=== PATIENT | male | born 1975 | race Caucasian/White ===

== ENCOUNTER 2024-02-12 16:08 | Inpatient (IN) | payer OTHER ==
[2024-02-12] MEDS ORDERED: FAMOTIDINE 20 MG/2 ML VIAL IV ONE (16:48)
[2024-02-12] MEDS ORDERED: ONDANSETRON 4 MG/2 ML VIAL ONE ×2 (16:48→18:12)
[2024-02-12] MEDS ORDERED: HYDROMORPHONE HCL 1 MG/ML INJ ONE ×2 (16:48→18:13)
[2024-02-12] MEDS ORDERED: NA CHLORIDE 0.9% 1,000 ML ONE (16:48)
[2024-02-12 16:55] LABS: Specific Gravity > 1.030 (1.005-1.030); Sqamous Epithelial None Seen /HPF (None Seen); Urine Bacteria None Seen /HPF (<20); Urine Bilirubin NEGATIVE (Negative); Urine Blood Negative (Negative); Urine Clarity Clear (Clear); Urine Color Yellow (Yellow); Urine Culture Reflex Order NOT NEEDED; Urine Glucose NEGATIVE (Negative); Urine Ketones TRACE (Negative); Urine Microscopic Reflex YN ORDER UMIC; Urine Mucus 2+ /HPF (None Seen); Urine Nitrite NEGATIVE (Negative); Urine Protein 1+ (Negative); Urine RBC <5 /HPF (None Seen); Urine Urobilinogen Normal (Normal); Urine WBC <5 /HPF (<5)
[2024-02-12 17:12] LABS: Absolute Lymphocytes (CBC) 0.7 K/uL (0.7-4.9); Absolute Monocytes 0.5 K/uL (0.1-1.3); Absolute Neutrophil 10.4 K/uL (1.8-8.0); Basophils % 0.3 % (0-1.3); Hemoglobin 13.9 g/dL (13.6-17.9); Lymphocytes % 5.7 % (15.3-44.8); MCH 33.9 pg (27.0-35.0); MCHC 33.9 g/dL (32.0-36.0); MCV 100.1 fL (80-100); Monocytes % 4.6 % (3.3-12.3); Neutrophils % 89.4 % (41.7-73.7); Platelets 189 thou/uL (152-406); Red Cell Distribution Width 16.4 % (12.1-15.2)
[2024-02-12 17:41] LABS: Albumin 3.4 g/dL (3.4-5.0); Albumin/Globulin Ratio 1.1 (1.1-1.8); Anion Gap 9.8 mEq/L (5.0-15.0); Bilirubin Total 0.6 mg/dL (0.2-1.0); Globulin 3.1 g/dL (2.3-3.5); Potassium 3.8 mEq/L (3.5-5.1); Protein, Total 6.5 g/dL (6.4-8.2)
--- NOTE | 2024-02-12 19:00 | RAD REPORT ---
EXAMINATION: CT ABDOMEN AND PELVIS WITH CONTRAST CLINICAL INDICATION: Male, 49 years old.ABD PAIN TECHNIQUE: CT abdomen and pelvis was performed, after the administration of IV contrast, [facility]. Axial, sagittal and coronal reconstructions were obtained. One or more of the following dose reduction techniques were used: Automated exposure control, adjustment of the mA and/o r kV according to patient size, and/or iterative reconstruction. Unless otherwise specified, incidental findings do not require dedicated imaging follow-up. [id number]. COMPARISON: No prior exam. FINDINGS: LOWER CHEST: The visualized lung bases are clear. LIVER: Normal in size and contour. No focal lesion. GALLBLADDER/BILE DUCT: No biliary ductal dilatation.?Distended gallbladder. No radiopaque stones. PANCREAS: Mild peripancreatic fluid and edema. Mild pancreatic atrophy. SPLEEN: Normal size. No focal lesion. ADRENALS: Normal; no mass. KIDNEYS AND URETERS: Normal size and contour. No hydronephrosis. URINARY BLADDER: Normal contour. GASTROINTESTINAL TRACT: Stomach is non-dilated. Small bowel has normal course and caliber. No colonic wall thickening or pericolonic inflammatory changes. PERITONEUM: No ascites. LYMPH NODES: No lymphadenopathy. ABDOMINAL AORTA AND OTHER VESSELS: Normal caliber aorta and IVC. REPRODUCTIVE ORGANS: No pathologic process MUSCULOSKELETAL: No acute or suspicious osseous abnormality. Multilevel degenerative changes are pres ent in the spine. ADDITIONAL FINDINGS: None. IMPRESSION: Acute interstitial pancreatitis. No competition features identified.
--- NOTE | 2024-02-12 19:09 | ER ---
Nurse's Notes [facility] Name: Mario Alcantar Age: 49 yrs Sex: Male : 1975 Arrival Date: 02/12/2024 Time: 16:08 Bed 17 Private MD: Diagnosis: Other acute pancreatitis without necrosis or infection Presentation: 02/11 16:12 Chief complaint: EMS states: Toned out for diffuse abdominal pain, N/V since this jl7 morning. Coronavirus screen: At this time, the client does not indicate any symptoms associated with coronavirus-19. Ebola Screen: No symptoms or risks identified at this time. Initial Sepsis Screen: Does the patient meet any 2 criteria? No. Patient's initial sepsis screen is negative. Does the patient have a suspected source of infection? No. Patient's initial sepsis screen is negative. Risk Assessment: Do you want to hurt yourself or someone else? Patient reports no desire to harm self or others. Onset of symptoms was February 12, 2024. Care prior to arrival: Medication(s) given: 200 mcg fentanyl IVP IV initiated. 20 GA, in the right forearm. 16:12 Method Of Arrival: EMS: [facility] jl7 16:12 Acuity: NORMA 3 jl7 Triage Assessment: 16:15 General: Appears in no apparent distress. uncomfortable, Behavior is cooperative, jl7 appropriate for age, restless. Pain: Complains of pain in abdomen diffusely Pain currently is 5 out of 10 on a pain scale. at worst was 10 out of 10 on a pain scale. GI: Reports nausea, vomiting. Historical: - Allergies: 16:15 No Known Allergies; jl7 - Home Meds: 16:15 None [Active]; jl7 - PMHx: 16:15 None; jl7 - PSHx: 16:15 None; jl7 - Immunization history:: Adult Immunizations up to date. - Infectious Disease History:: Denies. - Social history:: Smoking status: Reported history of juuling and/or vaping. Screenin:09 [facility] ED Fall Risk Assessment (Adult) History of falling in the last 3 months, db including since admission No falls in past 3 months (0 pts) Confusion or Disorientation No (0 pts) Intoxicated or Sedated No (0 pts) Impaired Gait No (0 pts) Mobility Assist Device Used No (0 pt) Altered Elimination No (0 pt) Score/Fall Risk Level 0 - 2 = Low Risk Oriented to surroundings, Maintained a safe environment. Abuse screen: Denies threats or abuse. Denies injuries from another. Nutritional screening: No deficits noted. Tuberculosis screening: No symptoms or risk factors identified. Assessment: 16:30 Reassessment: Patient appears in no apparent distress at this time. Patient and/or db family updated on plan of care and expected duration. Pain level reassessed. Patient is alert, oriented x 3, equal unlabored respirations, skin warm/dry/pink. General: Appears in no apparent distress. uncomfortable, Behavior is calm, cooperative. Pain: Complains of pain in abdomen. Neuro: Level of Consciousness is awake, alert, obeys commands, Oriented to person, place, time, situation. Cardiovascular: No deficits noted. Denies chest pain. Respiratory: Airway is patent Respiratory effort is even, unlabored, Respiratory pattern is regular, symmetrical. 17:30 Reassessment: Patient appears in no apparent distress at this time. Patient and/or db family updated on plan of care and expected duration. Pain level reassessed. Patient is alert, oriented x 3, equal unlabored respirations, skin warm/dry/pink. Patient states symptoms have improved. 18:12 Reassessment: SEE MAR FOR MEDICATION ADMINISTRATION. Pain: Pain currently is 10 out of db 10 on a pain scale. 19:02 Reassessment: Patient appears in no apparent distress at this time. Patient and/or db family updated on plan of care and expected duration. Pain level reassessed. Patient is alert, oriented x 3, equal unlabored respirations, skin warm/dry/pink. Patient states feeling better. 20:00 Reassessment: Patient appears in no apparent distress at this time. Patient and/or cp4 family updated on plan of care and expected duration. Pain level reassessed. Patient is alert, oriented x 3, equal unlabored respirations, skin warm/dry/pink. Vital Signs: 16:12 BP 170 / 95; Pulse 60; Resp 17; Temp 97.7; Pulse Ox 100% ; Weight 81.65 kg; Height 5 jl7 ft. 10 in. ; Pain 5/10; 16:30 BP 161 / 87; Pulse 61; Resp 18; Pulse Ox 95% on R/A; db 17:44 BP 164 / 84; Pulse 75; Resp 18; Pulse Ox 94% on R/A; db 19:00 BP 166 / 83; Pulse 72; Resp 18; Pulse Ox 93% ; cp4 20:00 BP 167 / 77; Pulse 62; Resp 18; Pulse Ox 95% ; cp4 21:00 BP 164 / 73; Pulse 68; Resp 18; Pulse Ox 94% ; cp4 16:12 Body Mass Index 25.83 (81.65 kg, 177.8 cm) jl7 16:12 Pain Scale: Adult [facility] ED Course: 16:11 Patient arrived in ED. eb 16:14 Triage completed. jl7 16:15 Fortino Kaye PA is PHCP. cp 16:15 Brandon Gonzales MD is Attending Physician. cp 16:15 Arm band placed on right wrist. jl7 16:40 Ruthy Whyte, RN is Primary Nurse. db 16:50 Maintain EMS IV. Dressing intact. Good blood return noted. Site clean \T\ dry. Gauge \T\ db site: 20 g RFA. 18:[address] via stretcher. db 18:09 Patient has correct armband on for positive identification. Bed in low position. Call db light in reach. Side rails up X 1. Pulse ox on. NIBP on. Warm blanket given. Pillow given. 18:34 CT Abd/Pelvis - IV Contrast Only In Process Unspecified. EDMS 18:43 PHCP role handed off by Fortino Kaye PA kb 18:43 Maren John FNP-C is PHCP. kb 19:25 Primary Nurse role handed off by Ruthy Whyte, AMOS jl7 20:00 Brandon Gonzales MD is Hospitalizing Provider. kmf 20:01 Facundo Kline MD is Hospitalizing Provider. kmf Administered Medications: 16:55 Drug: NS 0.9% IV 1000 ml IV at 1 bolus Per protocol; 1000 mL bolus Route: IV; Rate: 1 db bolus; Site: right forearm; 18:02 Follow up: Response: No adverse reaction; IV Status: Completed infusion; IV Intake: db 1000ml 16:55 Drug: Famotidine IVP 20 mg IVP once; dilute with 10 mL 0.9% NaCl; give over 2 minutes db Route: IVP; Site: right forearm; 16:55 Drug: Ondansetron IVP 4 mg IVP once; over 2 minutes Route: IVP; Site: right forearm; db 16:55 Drug: HYDROmorphone IVP 1 mg IVP once Route: IVP; Site: right forearm; db 18:15 Drug: Ondansetron IVP 4 mg IVP once; over 2 minutes Route: IVP; Site: right forearm; db 19:00 Follow up: Response: No adverse reaction; Nausea is decreased cp4 18:15 Drug: HYDROmorphone IVP 1 mg IVP once Route: IVP; Site: right forearm; db 19:00 Follow up: Response: No adverse reaction; Pain is decreased cp4 Intake: 18:02 IV: 1000ml; Total: 1000ml. db Outcome: 19:08 Decision to Hospitalize by Provider. kb 21:27 Patient left the ED. cp4 Signatures: Dispatcher [employer] EDMS Maren John, HEENA MS ACCESS DATABASE DEVELOPER-Fortino Munoz PA PA cp Leal, Jahala RN RN jl7 Barbara Webb Danielle, RN RN Caryl Johns cp4 Lisa Marshall
--- NOTE | 2024-02-12 19:09 | EDPHYS ---
Physician Documentation [facility] Name: Mario Alcantar Age: 49 yrs Sex: Male : 1975 Arrival Date: 02/12/2024 Time: 16:08 Bed 17 Private MD: ED Physician Brandon Gonzales HPI: 02/11 16:35 This 49 yrs old Male presents to ER via EMS with complaints of Abdominal Pain. cp 16:35 The patient presents with abdominal pain that is diffuse. Onset: The symptoms/episode cp began/occurred this morning. Associated signs and symptoms: Pertinent positives: nausea and vomiting. Historical: - Allergies: 16:15 No Known Allergies; jl7 - Home Meds: 16:15 None [Active]; jl7 - PMHx: 16:15 None; jl7 - PSHx: 16:15 None; jl7 - Immunization history:: Adult Immunizations up to date. - Infectious Disease History:: Denies. - Social history:: Smoking status: Reported history of juuling and/or vaping. ROS: 16:40 Constitutional: Negative for body aches, chills, fever, cp 16:40 Eyes: Negative for injury, pain, redness, and discharge, cp 16:40 ENT: Negative for drainage from ear(s), ear pain, sore throat, difficulty swallowing, difficulty handling secretions, 16:40 Cardiovascular: Negative for chest pain, edema, palpitations, 16:40 Respiratory: Negative for cough, shortness of breath, wheezing, 16:40 Abdomen/GI: Positive for abdominal pain, nausea and vomiting, Negative for diarrhea, constipation, anorexia, 16:40 Neuro: Negative for altered mental status, dizziness, headache, 16:40 All other systems are negative, Exam: 16:45 Constitutional: The patient appears in no acute distress, alert, awake, cp non-diaphoretic, non-toxic, well developed, well nourished, in obvious pain, uncomfortable, 16:45 Head/Face: Normocephalic, atraumatic. cp 16:45 Eyes: Periorbital structures: appear normal, Conjunctiva: normal, no exudate, no injection, Sclera: no appreciated abnormality, Lids and lashes: appear normal, bilaterally, 16:45 ENT: External ear(s): are unremarkable, Nose: is normal, Mouth: Lips: moist, Oral mucosa: moist, 16:45 Chest/axilla: Inspection: normal, 16:45 Cardiovascular: Rate: normal, Rhythm: regular, 16:45 Respiratory: the patient does not display signs of respiratory distress, Respirations: normal, no use of accessory muscles, no retractions, labored breathing, is not present, Breath sounds: are clear throughout, no decreased breath sounds, no stridor, no wheezing, 16:45 Abdomen/GI: Inspection: abdomen appears normal, Bowel sounds: active, all quadrants, Palpation: soft, in all quadrants, severe abdominal tenderness, in the epigastric area, rebound tenderness, is not appreciated, 16:45 Back: CVA tenderness, is absent, 16:45 Neuro: Orientation: to person, place \T\ time. Mentation: is normal, Motor: moves all fours, strength is normal, Vital Signs: 16:12 BP 170 / 95; Pulse 60; Resp 17; Temp 97.7; Pulse Ox 100% ; Weight 81.65 kg; Height 5 jl7 ft. 10 in. ; Pain 5/10; 16:30 BP 161 / 87; Pulse 61; Resp 18; Pulse Ox 95% on R/A; db 17:44 BP 164 / 84; Pulse 75; Resp 18; Pulse Ox 94% on R/A; db 19:00 BP 166 / 83; Pulse 72; Resp 18; Pulse Ox 93% ; cp4 20:00 BP 167 / 77; Pulse 62; Resp 18; Pulse Ox 95% ; cp4 21:00 BP 164 / 73; Pulse 68; Resp 18; Pulse Ox 94% ; cp4 16:12 Body Mass Index 25.83 (81.65 kg, 177.8 cm) jl7 16:12 Pain Scale: Adult jl7 MDM: 16:15 Patient medically screened. cp 17:00 Differential diagnosis: appendicitis, bowel obstruction, cholecystitis, Cholelithiasis, cp pancreatitis, Peptic Ulcer Disease, Perf. Duodenal Ulcer, Perf. Gastric Ulcer, Testicular Torsion, Ureterolithiasis, urinary tract infection. 19:07 Data reviewed: vital signs, nurses notes. Consideration of Admission/Observation kb Patient was admitted/placed on observation. Escalation of care including admission/observation considered. Management of patient was discussed with the following: Hospitalist: Dr Kline accepts pt for admission. Counseling: I had a detailed discussion with the patient and/or guardian regarding the historical points, exam findings, and any diagnostic results supporting the discharge/admit diagnosis, lab results, radiology results, the need for further work-up and treatment in the hospital. 02/11 16:31 Order name: CBC with Diff; Complete Time: 17:25 cp 02/11 18:07 Interpretation: Normal except: WBC 11.60; RBC 4.10; MCV 100.1; RDW 16.4; KENISHA% 89.4; cp LYM% 5.7; NEUT A 10.4. 02/11 16:31 Order name: CMP; Complete Time: 18:07 cp 02/11 18:07 Interpretation: Normal except: CL 110; GLUC 141; CA 8.4. 02/11 16:31 Order name: Lipase; Complete Time: 18:07 02/11 18:07 Interpretation: Abnormal: LIP 1447. 02/11 16:31 Order name: Urinalysis w/ reflexes; Complete Time: 17:25 cp 02/11 19:36 Order name: Basic Metabolic Panel [facility] 02/11 19:36 Order name: Basic Metabolic Panel [facility] 02/11 19:36 Order name: CBC with Automated Diff [facility] 02/11 19:36 Order name: CBC with Automated Diff [facility] 02/11 19:36 Order name: Lipase [facility] 02/11 19:36 Order name: Lipase [facility] 02/11 19:36 Order name: Liver (Hepatic) Function [facility] 02/11 19:36 Order name: Liver (Hepatic) Function [facility] 02/11 19:43 Order name: Lipid Profile [facility] 02/11 17:26 Order name: CT Abd/Pelvis - IV Contrast Only; Complete Time: 19:05 cp 02/11 16:31 Order name: IV Saline Lock; Complete Time: 17:05 02/11 16:31 Order name: Labs collected and sent; Complete Time: 17:05 cp Administered Medications: 16:55 Drug: NS 0.9% IV 1000 ml IV at 1 bolus Per protocol; 1000 mL bolus Route: IV; Rate: 1 db bolus; Site: right forearm; 18:02 Follow up: Response: No adverse reaction; IV Status: Completed infusion; IV Intake: db 1000ml 16:55 Drug: Famotidine IVP 20 mg IVP once; dilute with 10 mL 0.9% NaCl; give over 2 minutes db Route: IVP; Site: right forearm; 16:55 Drug: Ondansetron IVP 4 mg IVP once; over 2 minutes Route: IVP; Site: right forearm; db 16:55 Drug: HYDROmorphone IVP 1 mg IVP once Route: IVP; Site: right forearm; db 18:15 Drug: Ondansetron IVP 4 mg IVP once; over 2 minutes Route: IVP; Site: right forearm; db 19:00 Follow up: Response: No adverse reaction; Nausea is decreased cp4 18:15 Drug: HYDROmorphone IVP 1 mg IVP once Route: IVP; Site: right forearm; db 19:00 Follow up: Response: No adverse reaction; Pain is decreased cp4 Disposition: 02/12 19:05 Co-signature as Attending Physician, Brandon Gonzales MD I reviewed the patient's care rt provided by the Advanced Practice Provider and agree with the diagnosis and treatment plan. Disposition Summary: 02/12/24 19:08 Hospitalization Ordered Notes: Hospitalization Status: Inpatient Admission kb [facility] kb Condition: Stable kb Problem: new kb Symptoms: are unchanged kb Bed/Room Type: Standard Room Assignment: [facility](02/12/24 20:00) [facility] Provider: Facundo Kline(02/12/24 20:01) [facility] Diagnosis - Other acute pancreatitis without necrosis or infection kb Forms: - Medication Reconciliation Form kb - SBAR form kb - Leadership Thank You Letter kb Signatures: Dispatcher [employer] [facility] Maren John FNP-C ACETONE RECOVERY WORKER-Fortino Munoz PA PA cp Leal, Jahala RN RN jl7 Ruthy Whyte, RN RN Brandon Davalos MD MD rt Lisa Marshall f Caryl Camejo cp4 Corrections: (The following items were deleted from the chart) 02/11 17:26 17:26 Abdomen Pelvis W Con+CT.RAD.BRZ ordered. [facility] EDOR 20:00 19:08 Facundo Kline kmf 20:00 19:08 kb kmf 20:01 20:00 Brandon Gonzales [facility]
[2024-02-12] MEDS ORDERED: MORPHINE 4 MG/ML SYR IV PRN (19:33)
--- NOTE | 2024-02-12 19:37 | P.HP ---
Certification for Inpatient Patient admitted to: Inpatient With expected LOS: >2 Midnights Practitioner: I am a practitioner with admitting privileges, knowledge of patient current condition, hospital course, and medical plan of care. Services: Services provided to patient in accordance with Admission requirements found in Title 42 Section 412.3 of the Code of Federal Regulations Patient History Date of Service: 02/12/24 Reason for admission: Acute pancreatitis History of Present Illness: Patient is 49 years of age admitted with acute onset of severe abdominal pain associated with nausea vomiting apparently he was drinking last night he had an episode of pancreatitis in the his 20s he denies significant alcohol intake he does smoke marijuana - Past Medical/Surgical History -: Pancreatitis Past Surgical History: Patient denies surgical history Review of Systems 10-point ROS is otherwise unremarkable Gastrointestinal: Nausea, Vomiting, Abdominal Pain Physical Examination - Vital Signs Temperature: 97.7 F Blood Pressure: 170/95 Pulse: 60 Respirations: 17 Pulse Ox (%): 100 - Physical Exam General: Alert, Severe distress Respiratory: Clear to auscultation bilaterally Cardiovascular: No edema, Regular rate/rhythm, Normal S1 S2 Gastrointestinal: Hypoactive, Tenderness, Rebound, Guarding Musculoskeletal: No clubbing, No swelling - Studies Laboratory Data (last 24 hrs) 02/12/24 02/12/24 16:50 16:50 WBC 11.60 H Hgb 13.9 Hct 41.0 Plt Count 189 Sodium 138 Potassium 3.8 BUN 16 Creatinine 0.78 Glucose 141 H Total Bilirubin 0.6 AST 30 ALT 17 Alkaline Phosphatase 60 Lipase 1447 H Assessment and Plan - Problems (Diagnosis) (1) Acute pancreatitis Current Visit: Yes Status: Acute Plan: Patient is 49 years of age admitted with acute onset of abdominal pain diagnosis of pancreatitis confirmed by CT scan this may have been precipitated by alcohol intake plan to admit patient CT scan reviewed IV fluids pain relief no gallstones identified patient's lipase level is 1447 Qualifiers: Pancreatitis type: alcohol induced - Advance Directives Does patient have a Living Will: No Does patient have a Durable POA for Healthcare: No
[2024-02-12] MEDS: NA CHLORIDE 0.9% 1,000 ML IV SCH (21:51)
[2024-02-12] MEDS: HYDROMORPHONE HCL 2 MG/ML inj IV PRN (21:51)
[2024-02-12] MEDS: HYDRALAZINE HCL 20 MG/ML VIAL IV PRN (22:53)
[2024-02-12] MEDS: ONDANSETRON 4 MG/2 ML VIAL IV PRN (23:35)
[2024-02-13] MEDS: LABETALOL 20 MG/4ML SYRINGE IV PRN (00:17)
[2024-02-13] MEDS: HYDROMORPHONE HCL 2 MG/ML inj IV PRN ×3 (01:54→18:47)
[2024-02-13 04:42] LABS: Absolute Lymphocytes (CBC) 0.5 K/uL (0.7-4.9); Absolute Monocytes 0.9 K/uL (0.1-1.3); Basophils % 0.1 % (0-1.3); Hematocrit 41.5 % (39.6-49.0); Hemoglobin 14.3 g/dL (13.6-17.9); Lymphocytes % 3.9 % (15.3-44.8); MCH 34.5 pg (27.0-35.0); MCHC 34.3 g/dL (32.0-36.0); MCV 100.5 fL (80-100); Monocytes % 7.2 % (3.3-12.3); Neutrophils % 88.8 % (41.7-73.7); Nucleated Red Blood Cells % 0.1 % (0-0); Platelets 211 thou/uL (152-406); RBC Red Blood Cell Count 4.13 M/uL (4.33-5.43); Red Cell Distribution Width 16.5 % (12.1-15.2)
[2024-02-13 05:24] LABS: Blood Morphology Comment NOT SEEN (NOT SEEN); Platelet Estimate ADEQ; White Blood Cell Scan OK (OK)
[2024-02-13 05:39] LABS: Albumin 3.8 g/dL (3.4-5.0); Albumin/Globulin Ratio 1.2 (1.1-1.8); Anion Gap 8.8 mEq/L (5.0-15.0); Bilirubin Direct 0.3 mg/dL (0-0.2); Bilirubin Indirect, Calculated 0.6 mg/dL (0.2-0.8); Bilirubin Total 0.9 mg/dL (0.2-1.0); Globulin 3.2 g/dL (2.3-3.5); Potassium 3.8 mEq/L (3.5-5.1)
[2024-02-13] MEDS: NICOTINE 21 MG/PAT TD SCH (08:31)
[2024-02-13] MEDS: ENOXAPARIN 40 MG/0.4 ML SQ SCH (08:31)
[2024-02-13] MEDS: Ringers Lactate 1,000 ML IV ONE ×2 (09:33→18:42)
[2024-02-13] MEDS: ONDANSETRON 4 MG/2 ML VIAL IV PRN (09:40)
--- NOTE | 2024-02-13 09:54 | P.PN ---
Date of Service: 02/13/24 Subjective: Still having significant epigastric pain, nausea Blood pressures are elevated ROS: 10 point ROS as noted above, otherwise negative Physical exam GEN: Alert, oriented, NAD HEENT: Normal conjunctiva, sclera anicteric CV: Regular rate and rhythm, no edema Pulm: Nonlabored respirations on room air ABD: Soft, moderate epigastric tenderness, nondistended MSK: No joint tenderness Integumentary: No rashes Neuro: Normal speech, normal affect Vitals reviewed Assessment Acute pancreatitislikely precipitated by alcohol abuse Hypertension Plan Acute pancreatitislikely precipitated by alcohol abuse Still having significant abdominal pain, nausea Lipase with mild improvement Reports drinking a few nights per week-2-3 shots and some beers typically Counseled on need for alcohol cessation Triglycerides within normal limits Received 1 L IV fluid in ED, will bolus 1 L of LR today Continue aggressive IV fluids, as needed pain medications and antiemetics Hypertension Blood pressure is elevated although patient is still having a lot of pain Does not take any medications at home, also does not monitor his blood pressure at home May need to be initiated on antihypertensive agents if blood pressure still elevated when pain is improved VTE: Lovenox Code: full Dispo: 2 to 3 days Time Spent Managing Pts Care (In Minutes): 35
[2024-02-13] MEDS ORDERED: SODIUM CHLORIDE 0.9% 10ML INJ IV PRN (16:45)
[2024-02-13] MEDS: PROMETHAZINE INJ 25 MG/ML AMP IV PRN (17:03)
[2024-02-13 17:26] LABS: ALT/SGPT < 14 U/L (16-61); AST/SGOT 30 U/L (15-37); Albumin 3.3 g/dL (3.4-5.0); Albumin/Globulin Ratio 1.2 (1.1-1.8); Alkaline Phosphatase 44 U/L (45-117); Anion Gap 9.2 mEq/L (5.0-15.0); BUN Blood Urea Nitrogen 9 mg/dL (7-18); Bicarbonate 24 mEq/L (21-32); Bilirubin Total 0.8 mg/dL (0.2-1.0); Globulin 2.8 g/dL (2.3-3.5); Glomerular Filtration Rate 112 ml/min (=/>90); Glucose Level 105 mg/dL (74-106); Magnesium 1.1 mg/dL (1.6-2.4); Phosphorus 1.6 mg/dL (2.5-4.9); Potassium 3.2 mEq/L (3.5-5.1); Protein, Total 6.1 g/dL (6.4-8.2); Sodium Level 137 mEq/L (136-145)
[2024-02-13] MEDS: PANTOPRAZOLE 40 MG INJ IVP SCH (19:42)
[2024-02-13] MEDS: Magnesium Sulfate 2gm IVPB 2 G/50 ML BAG IV ONE (19:42)
[2024-02-13] MEDS: KCL 20 MEQ/100 mL IVPB 20 MEQ/100 ML BAG IV SCH (19:50)
[2024-02-13] MEDS: MELATONIN 5 MG TABLET PO PRN (21:22)
[2024-02-13] MEDS: POTASSIUM PHOS IN 0.9 % NACL 15 MMOL/250 ML BAG IV ONE (22:16)
[2024-02-14 07:13] LABS: Hematocrit 39.3 % (39.6-49.0); Hemoglobin 13.5 g/dL (13.6-17.9); MCH 34.6 pg (27.0-35.0); MCHC 34.3 g/dL (32.0-36.0); MCV 101.1 fL (80-100); MPV 8.2 fL (7.6-11.3); Platelets 181 thou/uL (152-406); RBC Red Blood Cell Count 3.89 M/uL (4.33-5.43); Red Cell Distribution Width 16.8 % (12.1-15.2)
[2024-02-14 07:32] LABS: Albumin 3.2 g/dL (3.4-5.0); Albumin/Globulin Ratio 0.9 (1.1-1.8); Anion Gap 8.5 mEq/L (5.0-15.0); Bilirubin Total 0.8 mg/dL (0.2-1.0); Globulin 3.5 g/dL (2.3-3.5); Magnesium 1.9 mg/dL (1.6-2.4); Phosphorus 1.8 mg/dL (2.5-4.9); Potassium 3.5 mEq/L (3.5-5.1); Protein, Total 6.7 g/dL (6.4-8.2)
[2024-02-14] MEDS: POTASSIUM PHOS IN 0.9 % NACL 15 MMOL/250 ML BAG IV SCH (08:58)
--- NOTE | 2024-02-14 13:14 | P.PN ---
Date of Service: 02/14/24 Subjective: Still having abdominal pain, nausea Doing ok with sips of water/ice chips Renal function remains intact ROS: 10 point ROS as noted above, otherwise negative Physical exam GEN: Alert, oriented, NAD HEENT: Normal conjunctiva, sclera anicteric CV: Regular rate and rhythm, no edema Pulm: Nonlabored respirations on room air ABD: Soft, moderate epigastric tenderness, nondistended MSK: No joint tenderness Integumentary: No rashes Neuro: Normal speech, normal affect Vitals reviewed Assessment Acute pancreatitislikely precipitated by alcohol abuse Hypertension Plan Acute pancreatitislikely precipitated by alcohol abuse Still having significant abdominal pain, nausea Lipase with improvement Reports drinking a few nights per week-2-3 shots and some beers typically Counseled on need for alcohol cessation Triglycerides within normal limits Continue aggressive IV fluids, as needed pain medications and antiemetics Slowly improving Hypertension Blood pressure is elevated although patient is still having a lot of pain Does not take any medications at home, also does not monitor his blood pressure at home May need to be initiated on antihypertensive agents if blood pressure still elevated when pain is improved VTE: Lovenox Code: full Dispo: 2 to 3 days Time Spent Managing Pts Care (In Minutes): 35
[2024-02-14] MEDS: LORazepam 2 MG/ML VIAL IV ONE ×2 (13:42→18:55)
[2024-02-14] MEDS ORDERED: FLUMAZENIL 0.1 MG/ML (5 mL VIAL) IV PRN (15:21)
[2024-02-14] MEDS: LORazepam 2 MG/ML VIAL IV SCH (15:57)
[2024-02-14] MEDS ORDERED: DEXMEDETOMIDINE HCL 200 MCG in NA CHLORIDE 0.9% 98 ML IV SCH (18:00)
[2024-02-14] MEDS: DEXMEDETOMIDINE HCL 1,000 MCG in NA CHLORIDE 0.9% 490 ML IV SCH (18:00)
[2024-02-14] MEDS: LORazepam 2 MG/ML VIAL ONE (18:49)
[2024-02-14] MEDS: HALOPERIDOL LACT 5 MG/ML INJ ONE (18:54)
[2024-02-14] MEDS: HALOPERIDOL LACT 5 MG/ML INJ IV PRN ×2 (19:09→23:40)
[2024-02-14] MEDS: LORazepam 2 MG/ML VIAL IV PRN (22:00)
[2024-02-15 06:19] LABS: Hematocrit 34.1 % (39.6-49.0); Hemoglobin 11.7 g/dL (13.6-17.9); MCH 35.1 pg (27.0-35.0); MCHC 34.3 g/dL (32.0-36.0); MCV 102.3 fL (80-100); MPV 8.7 fL (7.6-11.3); Platelets 160 thou/uL (152-406); RBC Red Blood Cell Count 3.33 M/uL (4.33-5.43); Red Cell Distribution Width 16.8 % (12.1-15.2)
[2024-02-15 06:35] LABS: AST/SGOT 20 U/L (15-37); Albumin 2.7 g/dL (3.4-5.0); Albumin/Globulin Ratio 0.8 (1.1-1.8); Alkaline Phosphatase 38 U/L (45-117); Anion Gap 6.8 mEq/L (5.0-15.0); BUN Blood Urea Nitrogen 11 mg/dL (7-18); Bicarbonate 26 mEq/L (21-32); Globulin 3.4 g/dL (2.3-3.5); Glomerular Filtration Rate 105 ml/min (=/>90); Glucose Level 94 mg/dL (74-106); Lipase 48 U/L (13-75); Magnesium 1.9 mg/dL (1.6-2.4); Phosphorus 1.6 mg/dL (2.5-4.9); Potassium 3.8 mEq/L (3.5-5.1); Protein, Total 6.1 g/dL (6.4-8.2); Sodium Level 137 mEq/L (136-145)
[2024-02-15 06:37] LABS: ALT/SGPT < 14 U/L (16-61)
[2024-02-15] MEDS: POTASSIUM PHOS IN 0.9 % NACL 15 MMOL/250 ML BAG IV ONE (06:59)
[2024-02-15] MEDS: THIAMINE HCL 100 MG TABLET PO SCH (07:45)
[2024-02-15] MEDS: FOLIC ACID 1 MG TABLET PO SCH (07:45)
[2024-02-15] MEDS ORDERED: ALBUTEROL 2.5 MG/3 ML NEB SOL NEB PRN (07:58)
[2024-02-15] MEDS: HALOPERIDOL LACT 5 MG/ML INJ IV PRN (09:37)
--- NOTE | 2024-02-15 10:09 | RAD REPORT ---
EXAM: XR of the abdomen HISTORY: Abdominal pain abdominal distension COMPARISON: 02/04/2024 FINDINGS: XR of the abdomen shows a significant distention of the stomach and small bowel loops in th e central abdomen most compatible with a moderate mechanical small bowel obstruction.. No pneumoperitoneum seen. No suspicious calcifications are seen. The bones are unremarkable. IMPRESSION: Distention of the stomach and small intestine in a relatively organized fashion is most compatible w ith moderate mechanical small bowel obstruction.
[2024-02-15] MEDS: LORazepam 2 MG/ML VIAL IV ONE (12:44)
[2024-02-15] MEDS: IPRATROPIUM BROM 0.5MG/2.5ML NEB SCH (13:00)
[2024-02-15] MEDS: propofoL 1,000 MG/100 ML VIAL IV ONE (13:16)
[2024-02-15] MEDS: NA CHLORIDE 0.9% 1,000 ML ONE (13:16)
[2024-02-15] MEDS ORDERED: IPRATROPIUM BROM 0.5MG/2.5ML NEB PRN (13:59)
[2024-02-15] MEDS: HYDROMORPHONE HCL 2 MG/ML inj IV PRN ×2 (14:09→16:25)
[2024-02-15] MEDS: propofoL 1,000 MG/100 ML VIAL IV SCH (14:10)
--- NOTE | 2024-02-15 14:12 | P.PN ---
Subjective Date of Service: 02/15/24 Chief Complaint: Acute pancreatitis Patient noted to be quite agitated today despite Precedex with maximum rate. He is noted to be with and requiring 2 L of oxygen by nasal cannula for his oxygen saturation to stay above 90%. No reported vomiting. Nursing staff report dark- colored urine. No reported fever. Physical Examination - Vital Signs Temperature: 98.0 F Blood Pressure: 144/127 Pulse: 83 Respirations: 21 Pulse Ox (%): 96 Assessment And Plan - Plan Physical examination General: Alert and oriented x1, moderate distress, audibly wheezing. HEENT: Conjunctiva not pale, anicteric sclera Neck: Supple, no elevated JVD Heart: Heart sounds 1 and 2 normal, regular rhythm, normal rate, no pedal edema Lungs: Clear to auscultation bilaterally, adequate breath sounds bilaterally, no rhonchi or crackles. Tachypneic. Abdomen: Distended, tense, mild tenderness, decreased bowel sounds. Extremities: No tenderness, no deformity Skin: Normal skin turgor, no rash, no nodules or ulcers. Neuro: No focal motor deficit. Normal speech. Psychiatry: Normal mood, no agitation. Assessment Acute pancreatitislikely precipitated by alcohol abuse Acute alcohol withdrawal/delirium tremens Partial SBO/ileus Hypertension Plan Acute pancreatitislikely precipitated by alcohol abuse Lipase level normalized. Triglycerides within normal limits Continue aggressive IV fluids, as needed pain medications and antiemetics Slowly improving. Delirium tremens Patient is still agitated on Precedex. He is needing more sedation KUB is demonstrating possible bowel obstruction indicating high risk for aspiration. Intubated for airway protection. Sedation with propofol. Ativan as needed for agitation. IV thiamine IV NS Monitor and optimize electrolytes. Partial small bowel obstruction/ileus Supportive measures NG tube to suction Serial abdominal exam Consult to general surgery. Hypertension Hydralazine IV as needed for BP spikes. VTE: Lovenox Code: grain merchandising manager Spent Managing Pts Care (In Minutes): 57 Critical care time spent managing delirium tremens, partial small bowel obstruction and airway is about 42 minutes.
[2024-02-15] MEDS ORDERED: ROCURONIUM 50 MG/5 ML VIAL IV ONE (14:31)
[2024-02-15] MEDS ORDERED: LIDOCAINE 2% MPF 5 ML VIAL ONE (14:31)
[2024-02-15] MEDS: MIDAZOLAM HCL 2 MG/2 ML INJ IV PRN (14:55)
[2024-02-15 15:56] LABS: Barbiturates NEGATIVE (NEGATIVE); Benzodiazepines NEGATIVE (NEGATIVE); Cocaine NEGATIVE (NEGATIVE); METHAMPHETAM NEGATIVE (NEGATIVE); Methadone NEGATIVE (NEGATIVE); Opiates POSITIVE (NEGATIVE); Phencyclidine NEGATIVE (NEGATIVE); THC Cannibis POSITIVE (NEGATIVE)
--- NOTE | 2024-02-15 16:48 | RAD REPORT ---
EXAMINATION: ONE VIEW CHEST XR CLINICAL INDICATION: Male, 49 years old.,Intubated TECHNIQUE: Frontal chest projection is submitted. Examination is limited by patient positioning and t echnique. COMPARISON: 02/15/2024 chest and abdomen radiograph FINDINGS: Endotracheal tube has been placed with tip terminating 4.9 cm above the nicky in the upper to mid th oracic trachea. Enteric tube loops in the fundus of the stomach, terminating near the body. Mild left perihilar testicular prominence. The lungs are otherwise well inflated and clear. No pneumothor ax or sizable effusion. The heart is normal in size. IMPRESSION: Satisfactory positioning of the endotracheal and enteric tubes. Mild left perihilar interstitial prominence could reflect central congestion or mild edema.
--- NOTE | 2024-02-15 17:10 | P.CNS ---
Date of Consult: 02/22/24 Reason for Consult: Respiratory failure acute severe pancreatitis Chief Complaint: Respiratory failure History of Present Illness: Patient is 49 years of age admitted with acute severe pancreatitis deteriorated transferred to the ICU developed ileus had to be intubated also started having alcohol withdrawal currently intubated on propofol with abdominal distention Allergies No Known Allergies Allergy (Unverified 02/12/24 20:39) Home Medications: NK [No Home Meds] 02/13/24 - Past Medical/Surgical History Diabetic: No -: Pancreatitis - Family History Mother History Unknown: Yes Father Medical History: Cancer Notes: bladder and lung Cancer - Social History Alcohol use: Yes CD- Drugs: Yes Caffeine use: Yes Place of Residence: Home Review of Systems is unable to be obtained Physical Examination Temp Pulse Resp BP Pulse Ox 98.0 F 71 27 H 106/59 L 97 02/15/24 16:00 02/15/24 16:20 02/15/24 16:25 02/15/24 16:00 02/15/24 16:25 General: Unresponsive HEENT: Atraumatic Neck: Supple Respiratory: Clear to auscultation bilaterally Cardiovascular: No edema, Regular rate/rhythm Gastrointestinal: Hypoactive, Distended - Problems (1) Respiratory failure Current Visit: Yes Status: Acute Plan: Patient is 49 years of age admitted with acute severe pancreatitis is currently in respiratory distress was intubated is now on propofol with an NG tube in with significant drainage start IV antibiotics repeat CT scan of the abdomen patient's opiates and THC's C screen is positive patient's vital signs are stable start on lactated Ringer lactic acid is normal lipase is decreased start on TPN tomorrow chest x-ray reviewed until later settings adjusted vent protocol critical care 1 hour
[2024-02-15] MEDS: LORazepam 2 MG/ML VIAL IV PRN (17:45)
[2024-02-15] MEDS: Ringers Lactate 1,000 ML IV SCH (17:45)
[2024-02-15] MEDS: Meropenem 1,000 MG in NA CHLORIDE 0.9% 100 ML IV SCH (17:46)
--- NOTE | 2024-02-16 07:08 | RAD REPORT ---
ADDENDUM #1 The findings of #1,2, 4, and [address] Ramu Dawson at 02/16/2024 7:00 AM CDT. Electronically signed by: Jia Waddell MD 02/16/2024 07:13 AM CDT RP End of Addendum CT CHEST ABDOMEN PELVIS WITHOUT IV CONTRAST CT CHEST ABDOMEN PELVIS WITH IV CONTRAST CLINICAL INDICATIONS: Acute severe pancreatitis worsened. COMPARISON: CT abdomen and pelvis 02/12/2024 TECHNIQUE: CT images of the chest, abdomen and pelvis were obtained prior to and following administra tion of intravenous contrast. Multiplanar reformats were provided. Dose lowering techniques such as automated exposure control, iterative reconstruction, and mA and/or kV adjustment for patient size wa s utilized for this examination. CHEST FINDINGS: LOWER NECK: Unremarkable. AIRWAYS: Trachea and mainstem bronchi are patent. LUNGS/PLEURA: Bilateral lung apices are not included in the [id number]. New small bilateral pleura l effusions with associated compressive atelectasis. No pneumothorax. VASCULATURE: No large or central pulmonary embolism. No evidence of thoracic aortic aneurysm or disse ction. MEDIASTINUM/NODES: No pathologic adenopathy. HEART: Normal heart size. Trace pericardial effusion. OSSEOUS/CHEST WALL: Unremarkable. ABDOMEN/PELVIS FINDINGS: LIVER: Unremarkable. BILIARY: Gallbladder is distended without radiopaque gallstones. Trace pericholecystic fluid is likel y related to the presence of ascites. The common bile duct is mildly prominent, measuring 8 mm in diameter. There is mild mucosal enhancement of gallbladder wall, suspicious for reactive cholangitis. PANCREAS: Significant interval worsening of pancreatitis, noting significantly increased peripancreat ic fluid and inflammation extending to the anterior and left aspect of the upper peritoneal cavity. There is interval development of somewhat loculated appearance of several focal areas of peripancreat ic and upper abdominal fluid, concerning for early development of collections. No well-circumscribed collection is identified at this time. No intrapancreatic necrotic collection. SPLEEN: Unremarkable. ADRENALS: Unremarkable. KIDNEYS/URETERS: Symmetrical nephrogram without hydronephrosis or suspicious lesion. Trace bilateral perinephric fluid, likely related to extension of peripancreatic inflammation. A punctate nonobstructive 1 mm calculus in both kidneys. BOWEL/STOMACH: * Enteric tube terminates in stomach. * There is mild circumferential wall thickening with mucosal hyperenhancement of the duodenum, like ly reactive duodenitis associated with pancreatitis. * There are multiple dilated small bowel loops with air-fluid level in the abdomen. The transition point appears to be at distal/terminal ileum on series 301 image 117. The terminal ileum is decompressed. Findings are concerning for partial small bowel obstruction that may be related to sten osis from the inflamed terminal ileum. * There is mucosal enhancement of terminal ileum, ascending colon and the cecum. There is mild gase ous distention of transverse and descending colon. The sigmoid colon is decompressed with mild mucosal enhancement. Mild mucosal enhancement is also present in the stomach and jejunum. Overall fin dings are suggestive of gastroenterocolitis. MESENTERY/PERITONEUM: There is small ascites. No discrete focal collection. No pneumoperitoneum. LYMPH NODES: Shotty retroperitoneal lymph nodes, likely reactive. URINARY BLADDER: Decompressed with a Velasco catheter in place . REPRODUCTIVE: Unremarkable. VASCULAR: Unremarkable. ABDOMINAL/PELVIC WALL: Mild body wall edema. BONES: No acute findings No compression deformity, nor osteolytic or sclerotic lesion. IMPRESSION: 1. Worsening pancreatitis with significantly increased peripancreatic fluid and inflammation extend ing to the upper peritoneal cavity, to a lesser degree retroperitoneal cavity. 2. Suggestion of early development of multifocal peripancreatic collections, although no well-circu mscribed collections at this time. 3. Likely reactive duodenitis and cholangitis of common bile duct. 4. Diffuse gastroenterocolitis, particularly at the terminal ileum, ascending colon and sigmoid col on. 5. Concern for partial small bowel obstruction at distal/terminal ileum that may be related to sten osis from inflamed terminal ileum. 6. Small ascites. No discrete focal collection. 7. New small bilateral pleural effusions with associated compressive atelectasis. 8. Trace pericardial effusion. 9. Mild anasarca. 10. Nonobstructive bilateral punctate renal calculi. Electronically signed by: Jia Waddell MD 02/16/2024 06:56 AM CDT RP Due to temporary technical issues with the PACS/[employer] reporting system, reports are being que d by the in-house radiologist without review as a courtesy to ensure prompt reporting the interpreting radiologist is fully responsible for the content of the report. Transcribed Date/Time: 02/16/2024 7:17 AM
--- NOTE | 2024-02-16 07:17 | RAD REPORT ---
ADDENDUM #1 The findings of #1,2, 4, and [address] Ramu Dawson at 02/16/2024 7:00 AM CDT. Electronically signed by: Jia Waddell MD 02/16/2024 07:13 AM CDT RP End of Addendum CT CHEST ABDOMEN PELVIS WITHOUT IV CONTRAST CT CHEST ABDOMEN PELVIS WITH IV CONTRAST CLINICAL INDICATIONS: Acute severe pancreatitis worsened. COMPARISON: CT abdomen and pelvis 02/12/2024 TECHNIQUE: CT images of the chest, abdomen and pelvis were obtained prior to and following administra tion of intravenous contrast. Multiplanar reformats were provided. Dose lowering techniques such as automated exposure control, iterative reconstruction, and mA and/or kV adjustment for patient size wa s utilized for this examination. CHEST FINDINGS: LOWER NECK: Unremarkable. AIRWAYS: Trachea and mainstem bronchi are patent. LUNGS/PLEURA: Bilateral lung apices are not included in the [id number]. New small bilateral pleura l effusions with associated compressive atelectasis. No pneumothorax. VASCULATURE: No large or central pulmonary embolism. No evidence of thoracic aortic aneurysm or disse ction. MEDIASTINUM/NODES: No pathologic adenopathy. HEART: Normal heart size. Trace pericardial effusion. OSSEOUS/CHEST WALL: Unremarkable. ABDOMEN/PELVIS FINDINGS: LIVER: Unremarkable. BILIARY: Gallbladder is distended without radiopaque gallstones. Trace pericholecystic fluid is likel y related to the presence of ascites. The common bile duct is mildly prominent, measuring 8 mm in diameter. There is mild mucosal enhancement of gallbladder wall, suspicious for reactive cholangitis. PANCREAS: Significant interval worsening of pancreatitis, noting significantly increased peripancreat ic fluid and inflammation extending to the anterior and left aspect of the upper peritoneal cavity. There is interval development of somewhat loculated appearance of several focal areas of peripancreat ic and upper abdominal fluid, concerning for early development of collections. No well-circumscribed collection is identified at this time. No intrapancreatic necrotic collection. SPLEEN: Unremarkable. ADRENALS: Unremarkable. KIDNEYS/URETERS: Symmetrical nephrogram without hydronephrosis or suspicious lesion. Trace bilateral perinephric fluid, likely related to extension of peripancreatic inflammation. A punctate nonobstructive 1 mm calculus in both kidneys. BOWEL/STOMACH: * Enteric tube terminates in stomach. * There is mild circumferential wall thickening with mucosal hyperenhancement of the duodenum, like ly reactive duodenitis associated with pancreatitis. * There are multiple dilated small bowel loops with air-fluid level in the abdomen. The transition point appears to be at distal/terminal ileum on series 301 image 117. The terminal ileum is decompressed. Findings are concerning for partial small bowel obstruction that may be related to sten osis from the inflamed terminal ileum. * There is mucosal enhancement of terminal ileum, ascending colon and the cecum. There is mild gase ous distention of transverse and descending colon. The sigmoid colon is decompressed with mild mucosal enhancement. Mild mucosal enhancement is also present in the stomach and jejunum. Overall fin dings are suggestive of gastroenterocolitis. MESENTERY/PERITONEUM: There is small ascites. No discrete focal collection. No pneumoperitoneum. LYMPH NODES: Shotty retroperitoneal lymph nodes, likely reactive. URINARY BLADDER: Decompressed with a Velasco catheter in place . REPRODUCTIVE: Unremarkable. VASCULAR: Unremarkable. ABDOMINAL/PELVIC WALL: Mild body wall edema. BONES: No acute findings No compression deformity, nor osteolytic or sclerotic lesion. IMPRESSION: 1. Worsening pancreatitis with significantly increased peripancreatic fluid and inflammation extend ing to the upper peritoneal cavity, to a lesser degree retroperitoneal cavity. 2. Suggestion of early development of multifocal peripancreatic collections, although no well-circu mscribed collections at this time. 3. Likely reactive duodenitis and cholangitis of common bile duct. 4. Diffuse gastroenterocolitis, particularly at the terminal ileum, ascending colon and sigmoid col on. 5. Concern for partial small bowel obstruction at distal/terminal ileum that may be related to sten osis from inflamed terminal ileum. 6. Small ascites. No discrete focal collection. 7. New small bilateral pleural effusions with associated compressive atelectasis. 8. Trace pericardial effusion. 9. Mild anasarca. 10. Nonobstructive bilateral punctate renal calculi. Electronically signed by: Jia Waddell MD 02/16/2024 06:56 AM CDT RP Due to temporary technical issues with the PACS/[employer] reporting system, reports are being que d by the in-house radiologist without review as a courtesy to ensure prompt reporting the interpreting radiologist is fully responsible for the content of the report. Transcribed Date/Time: 02/16/2024 7:17 AM
[2024-02-16 07:32] LABS: Hematocrit 33.9 % (39.6-49.0); Hemoglobin 11.7 g/dL (13.6-17.9); MCH 35.4 pg (27.0-35.0); MCHC 34.4 g/dL (32.0-36.0); MCV 103.2 fL (80-100); Platelets 206 thou/uL (152-406); RBC Red Blood Cell Count 3.29 M/uL (4.33-5.43); Red Cell Distribution Width 17.2 % (12.1-15.2)
[2024-02-16] MEDS: HALOPERIDOL LACT 5 MG/ML INJ IV PRN (07:33)
[2024-02-16 07:50] LABS: Albumin 2.5 g/dL (3.4-5.0); Albumin/Globulin Ratio 0.6 (1.1-1.8); Anion Gap 9.7 mEq/L (5.0-15.0); Bilirubin Total 0.7 mg/dL (0.2-1.0); Globulin 4.1 g/dL (2.3-3.5); Phosphorus 1.9 mg/dL (2.5-4.9); Potassium 3.7 mEq/L (3.5-5.1); Protein, Total 6.6 g/dL (6.4-8.2)
[2024-02-16] MEDS: POTASSIUM PHOS IN 0.9 % NACL 15 MMOL/250 ML BAG IV SCH (08:43)
[2024-02-16 08:45] VITALS: O2SAT 100
--- NOTE | 2024-02-16 13:29 | RAD REPORT ---
EXAMINATION: ONE VIEW CHEST XR CLINICAL INDICATION: Male, 49 years old.PICC Line insertion TECHNIQUE: 1 View, AP supine, X-ray of the chest was performed. [id number]. COMPARISON: 02/15/2024 FINDINGS: Lungs and pleura: Bilateral pleural effusions. Diffuse prominence of the pulmonary interstitium, wors ened from prior. Heart and mediastinum: Similar size and configuration Unremarkable mediastinal contours. Osseous structures: No acute abnormality. Tubes/lines: Endotracheal tube in satisfactory position at the aortic arch. Interval placement of a r ight subclavian approach PICC with tip overlying the mid SVC. Enteric tube again noted. Other: None. IMPRESSION: 1. PICC tip in satisfactory position overlying the mid SVC. The other support apparatus is stable. 2. Worsened aeration lungs likely reflecting a combination of bilateral pleural effusions, atelectasi s, and probable pulmonary edema.
--- NOTE | 2024-02-16 14:04 | P.PN ---
Subjective Date of Service: 02/16/24 Chief Complaint: Respiratory failure Patient is intubated and on mechanical ventilation. Patient abdomen looks slightly distended. He has been afebrile. About 800 mL bile colored fluid was drained after NG tube insertion yesterday. Physical Examination - Vital Signs Temperature: 98.9 F Blood Pressure: 132/66 Pulse: 92 Respirations: 25 Pulse Ox (%): 96 Assessment And Plan - Plan Physical examination General: Sedated, and on mechanical ventilation. HEENT: Anicteric sclera Neck: Supple, no elevated JVD Heart: Heart sounds 1 and 2 normal, regular rhythm, normal rate, no pedal edema Lungs: Bilateral upper airway transmitted sounds, no rhonchi or crackles. Abdomen: Mild distension, mild tenderness, decreased bowel sounds. Extremities: No tenderness, no deformity Skin: Normal skin turgor, no rash, no nodules or ulcers. Neuro: No focal motor deficit. Normal speech. Psychiatry: Normal mood, no agitation. Assessment Acute pancreatitislikely precipitated by alcohol abuse Acute alcohol withdrawal/delirium tremens Partial SBO/ileus Hypertension Plan Acute pancreatitislikely precipitated by alcohol abuse CT abdomen and pelvis suggest worse pancreatitis with fluid collection. Keep n.p.o. Continue aggressive IV fluids, as needed pain medications and antiemetics Monitor lipase level. Prognosis is worsened. Team is accepting transfer to [facility] for tertiary level of care. Delirium tremens Patient is intubated and on propofol for sedation. Precedex added per Pulmonary Dr. Kline's recommendation IV thiamine IV NS Monitor and optimize electrolytes. Considering TPN. Partial small bowel obstruction/ileus CT abdomen and pelvis results reviewed, ileal inflammation with possible distal obstruction versus ileus. Supportive measures NG tube to suction Serial abdominal exam Monitor and optimize electrolytes Bowel rest. Hypertension Hydralazine IV as needed for BP spikes. 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
[2024-02-16 14:22] LABS: Arterial Blood Carboxyhemoglob 0.7 % (0-1.5); Blood Gas Oxyhemoglobin 96.6 % (94-97); Blood Gas THB 10.2 g/dl (12-18); Blood O2 Saturation 98.5 % (92-98.5)
[2024-02-16] MEDS ORDERED: LORazepam 2 MG/ML VIAL IV SCH (16:00)
[2024-02-16] MEDS: Meropenem 1,000 MG in NA CHLORIDE 0.9% 100 ML IV SCH (16:47)
--- NOTE | 2024-02-16 17:15 | P.PN ---
Subjective Date of Service: 02/16/24 Chief Complaint: Respiratory failure No change in patient's condition he still continues to remain very agitated requiring significant amount of sedation scan shows worsening pancreatitis Review of Systems is unable to be obtained Physical Examination - Vital Signs Temperature: 97.9 F Blood Pressure: 115/69 Pulse: 77 Respirations: 15 Pulse Ox (%): 99 - Physical Exam General: Delirious, Unresponsive Respiratory: Clear to auscultation bilaterally Cardiovascular: No edema, Regular rate/rhythm Gastrointestinal: Hypoactive, Distended Musculoskeletal: No clubbing, No swelling Assessment And Plan - Current Problems (Diagnosis) (1) Respiratory failure Current Visit: Yes Status: Acute Plan: Patient admitted with respiratory failure secondary to severe acute pancreatitis and alcohol withdrawal continue with present medication add selective drip use Ativan and Dilaudid as needed start patient on TPN is currently on 40% FiO2 assist-control ventilation (2) Acute pancreatitis Current Visit: Yes Status: Acute Plan: Patient admitted with severe acute pancreatitis CT scan shows worsening currently patient is on meropenem chemistries reviewed white count is declining really he was in alcohol rehab about 2 months ago signs are currently stable Qualifiers: Pancreatitis type: alcohol induced
[2024-02-16 22:36] VITALS: BMI 28.7
[2024-02-17 00:53] VITALS: TEMP 98.9
[2024-02-17 06:09] VITALS: BP 118/67
[2024-02-17] MEDS ORDERED: Mupirocin NASAL 2 APPL/1 GM TUBE NAS SCH (09:00)
--- NOTE | 2024-02-17 11:10 | P.DS ---
Admission Date: 02/12/24 Discharge Date: 02/17/24 Disposition: [facility] Discharge Condition: CRITICAL Reason for Admission: Respiratory failure Consultations: Pulmonary-Dr. Kline Brief History of Present Illness: Patient is 49 years of age presented with acute onset of severe abdominal pain associated with nausea and vomiting apparently following an alcohol binge. He had a previous episode of pancreatitis in the his 20s. Workup in the emergency department showed markedly elevated lipase level and CT abdomen pelvis demonstrating acute interstitial pancreatitis. Patient was hospitalized for further management. Hospital Course: Diagnosis Acute pancreatitislikely precipitated by alcohol abuse Acute alcohol withdrawal/delirium tremens Partial SBO/ileus Hypertension Plan Acute pancreatitislikely precipitated by alcohol abuse CT abdomen and pelvis suggested pancreatitis with fluid collection. Patient treated supportively with aggressive IV fluids, as needed pain medications and antiemetics Lipase level trended down and normalized however patient developed abdominal distention and repeat CT abdomen pelvis showed ileus versus small bowel obstruction, worsening acute pancreatitis and development of fluid collections. Patient was subsequently intubated and NG tube to suction inserted to decompress his bowel. Prognosis is worsened. Transfer to [facility] for tertiary level care initiated. Patient accepted for transfer. His vitals are stable for transfer. Delirium tremens Patient developed alcohol withdrawal symptoms with worsened to delirium tremens. He was transferred to the ICU and agitation treated with Precedex drip. Patient required intubation for airway protection given abdominal distention, ileus versus bowel obstruction and persistent agitation. He needed propofol for sedation. He received thiamine and folic acid. Partial small bowel obstruction/ileus CT abdomen and pelvis results reviewed, ileal inflammation with possible distal obstruction versus ileus. Supportive measures NG tube to suction placed Hypertension Hydralazine IV as needed for BP spikes. Vital Signs/Physical Exam: Temp Pulse Resp BP Pulse Ox 98.9 F 72 14 118/67 96 02/17/24 04:00 02/17/24 06:00 02/17/24 06:47 02/17/24 06:00 02/17/24 06:47 General: Other (Sedated) HEENT: Other (ET tube in place) Neck: JVD not distended Respiratory: Other (Bilateral upper airway transmitted sounds.) Cardiovascular: No edema, Regular rate/rhythm, Normal S1 S2 Gastrointestinal: Hypoactive, Distended Musculoskeletal: No swelling Integumentary: No rashes, No cyanosis Neurological: Other (Sedated, no focal motor deficit) Laboratory Data at Discharge: WBC Cancelled 02/17/24 05:00 Hgb Cancelled 02/17/24 05:00 Hct Cancelled 02/17/24 05:00 Plt Count Cancelled 02/17/24 05:00 Sodium Cancelled 02/17/24 05:00 Potassium Cancelled 02/17/24 05:00 BUN Cancelled 02/17/24 05:00 Creatinine Cancelled 02/17/24 05:00 Glucose Cancelled 02/17/24 05:00 Phosphorus Cancelled 02/17/24 05:00 Magnesium Cancelled 02/17/24 05:00 Total Bilirubin Cancelled 02/17/24 05:00 AST Cancelled 02/17/24 05:00 ALT Cancelled 02/17/24 05:00 Alkaline Phosphatase Cancelled 02/17/24 05:00 Triglycerides 72 mg/dL (<150) 02/13/24 04:11 Cholesterol 132 mg/dL (<200) 02/13/24 04:11 HDL Cholesterol 81 mg/dL (40-60) H 02/13/24 04:11 Cholesterol/HDL Ratio 1.63 02/13/24 04:11 Lipase Cancelled 02/17/24 05:00 Home Medications: NK [No Home Meds] 02/13/24 [facility] [Primary [facility] - Time spent managing pt's care (in minutes): 35
--- NOTE | 2024-02-18 20:11 | CON ---
Date of Consultation: 02/16/2024 Reason For Consultation: Severe acute alcoholic pancreatitis. History Of Present Illness: The patient is a 49-year-old white male with history of alcohol abuse an d alcoholic pancreatitis in the past, also with drug abuse. The patient with positive opiates and TH C on drug screen on admission. The patient presented to the hospital with severe abdominal pain, fou nd to have alcoholic pancreatitis, verified by history of alcohol use as per family and increased chaney creatitis noted on CT scan of the abdomen and pelvis and for abdominal pain. The patient also had na usea and vomiting. Currently, his lipase is normal at 27, white count is a little bit below 4. He h as had pancreatitis since he is in his 20s. Past Medical History: Significant for alcoholic pancreatitis and pancreatitis in the past since his 20s, it appears. Drug screen positive for opiates and THC. Home Medications: None. Allergies: NONE. Social History: Positive for alcohol. Positive for tobacco approximately 2 packs per day. It looks like positive for the drug use including opiates, which was positive on drug screen and THC as well as alcohol. Family History: Father of bladder and lung cancer, it appears by chart review. Review of Systems: The patient is intubated, sedated secondary to delirium tremens and ways to protect airway and other complications on the floor led to intubation in ICU currently. Intubated, sedated. There are no melena, hematochezia, , hematuria, dysuria, polyuria, polydipsia, muscle aches , joint aches, backaches. Unclear if he has depression or anxiety, but it is probably likely in his condition. Physical Examination: Vital Signs: He is 5 feet 2 inches and 200 pounds. BMI of 28 kg/m2. Temperature 98.9 degrees Fahre nheit, pulse 98, respirations 15, blood pressure 115/60, O2 saturation 94% to 96% on room air. General: He is intubated, sedated in ICU in bed. HEENT: Atraumatic. Unable to assess pupils at this current time. Oropharynx has ET tube in place. Neck: Supple. Respirations: Clear to auscultation. Cardiac: Regular rate and rhythm. No gallops or rubs. Abdomen: Hypoactive bowel sounds with nothing really heard. Distended, taut abdomen. It looks like he is getting a compartment syndrome, which is really not distended like it is or filled with air, b ut it felt like it is filled with fluid. Extremities: There was some edema in lower extremities and unable to assess further neurologically d ue to intubation and sedation. Laboratory Data: He has a white count of 3.7, down from 12.4 upon admission; hemoglobin of 11.7; hem atocrit 33.9; MCV of 103; platelet count of 206. Blood gases 7.35, pCO2 of 42, pO2 of 133, bicarb 23 , O2 saturation 98.5% on 40% FiO2. Got a sodium of 139, potassium 3.7, chloride 109, BUN of 9, creat inine of 0.8, glucose 79. Calcium 8.8, phosphorus 1.9, magnesium 2.0, total bilirubin 0.7, AST 67, A LT 23, alkaline phosphatase 39, total protein 6.6, albumin 2.5, lipase 22. UA; trace ketones, 2+ muc us, 1+ protein, 1.03. Tox screen positive for opiates and THC. Serology is negative. CT abdomen and pelvis revealed acute interstitial pancreatitis; that is from the [address] a bdomen and pelvis today reveals worsening pancreatitis with significantly increased peripancreatic fl uid and inflammatory extending to the upper peritoneal cavity with less degree in the retroperitoneal cavity suggesting rather development of multifocal peripancreatic collections, reactive duodenitis, cholangitis in the common bile duct, diffuse gastroenteritis, particularly in the terminal ileum, asc ending colon, and sigmoid colon, concerning for partial small bowel obstruction in distal ileum, smal l ascites, small bilateral pleural effusions, trace pericardial effusion, anasarca, and some renal ca lculi that are small, punctate size. Impression: 1.Acute severe alcoholic pancreatitis, recurrent, possible early compartment syndrome. CT abdomen a nd pelvis reveals increasing pancreatitis, probable ileus, and other as per above. Lipase is normal at 27. White count is 4. The patient is status post delirium tremens with question of his ability t o protect his airway. The patient is intubated and sedated in ICU and transfer from floor to the ICU . 2.History of alcoholic pancreatitis, recurrent, positive drug screen for opiates and THC and other d rug abuse as per note above. Recommendations: Continue IV fluids, increase as able. Place Dobhoff tube into jejunum and start tu be feeds as opposed to TPN. Monitor labs. Continue with DT precautions and p.r.n. benzos and other alcohol withdrawal measures such as thiamine and folate. WS/MODL Voice ID: [id number] Report ID: [id number]
== END 2024-02-17 07:00 | disposition short-term general hospital (02) | DRG 439 ==
LOC: ER 16:08 → 2ND 19:34 → 3RD-ICU 02-14 16:21
PROVIDERS: ADMIT Internal Medicine Sleep Medicine; ATTEND Internal Medicine
PROC: 0T9B70Z Drainage of Bladder with Drainage Device, Via Natural or Artificial Opening (ICD-10-PCS; 2024-02-15)
PROC: 3E0436Z Introduction of Nutritional Substance into Central Vein, Percutaneous Approach (ICD-10-PCS; 2024-02-15)
PROC: 5A1945Z Respiratory Ventilation, 24-96 Consecutive Hours (ICD-10-PCS; principal; 2024-02-16)
PROC: 0BH17EZ Insertion of Endotracheal Airway into Trachea, Via Natural or Artificial Opening (ICD-10-PCS; 2024-02-16)
PROC: 4A033R1 Measurement of Arterial Saturation, Peripheral, Percutaneous Approach (ICD-10-PCS; 2024-02-16)
PROC: 02HV33Z Insertion of Infusion Device into Superior Vena Cava, Percutaneous Approach (ICD-10-PCS; 2024-02-16)
DX: K85.20 Alcohol induced acute pancreatitis without necrosis or infection (principal); F10.131 Alcohol abuse with withdrawal delirium; F10.132 Alcohol abuse with withdrawal with perceptual disturbance; K56.690 Other partial intestinal obstruction; F11.10 Opioid abuse, uncomplicated; F12.10 Cannabis abuse, uncomplicated; I10 Essential (primary) hypertension; F41.9 Anxiety disorder, unspecified; Z71.41 Alcohol abuse counseling and surveillance of alcoholic; Z87.891 Personal history of nicotine dependence
CPT/HCPCS: 36415; 36569; 36600; 71045; 71250; 71260; 74018; 74176; 74177; 80048; 80053; 80061; 80076; 80307; 81001; 82550; 82805; 82947; 83605; 83690; 83735; 84100; 85025; 85027; 87040; 94002; 94003; 96361; 96374; 96375; 99284; J0360; J1170; J1630; J1650; J2001; J2185; J2250; J2405; J2470; J2550; J2704; J3475; J3480; J7030; J7120; Q9967